=== PATIENT | female | born 1980 ===

== ENCOUNTER 2023-10-28 22:39 | Inpatient (IN) | payer BC ==
[2023-10-29] MEDS ORDERED: Butorphanol 1 MG/ML SDV IVPUSH PRN (02:15)
[2023-10-29] MEDS ORDERED: Lactated Ringers 1,000 ML IV SCH (02:15)
[2023-10-29] MEDS ORDERED: Methylergonovine 0.2 MG/1 ML Amp IM PRN (02:15)
[2023-10-29] MEDS ORDERED: Misoprostol 200 MCG Tab PO PRN (02:15)
[2023-10-29] MEDS ORDERED: Terbutaline 1 MG/ML SDV SUBCUT PRN (02:15)
[2023-10-29] MEDS ORDERED: Oxytocin/0.9 % Sodium Chloride 30 UNIT/500 ML BAG IV SCH ×2 (02:15)
[2023-10-29] MEDS ORDERED: Tranexamic Acid IN NACL,ISO-OS 1,000 MG in Premix Bag 1 BAG IV PRN ×2 (02:15)
[2023-10-29] MEDS ORDERED: Lidocaine 1% 50 ML MDV INJECT PRN (02:15)
[2023-10-29] MEDS ORDERED: Water For Irrigation,Sterile 1,000 ML Container IRR PRN (02:15)
[2023-10-29] MEDS ORDERED: Misoprostol 25 MCG (1/4 of 100 MCG) Tab VAG PRN ×2 (02:15)
[2023-10-29] MEDS ORDERED: Sodium Chloride 0.9% 10 ML Syringe FLUSH PRN (02:15)
[2023-10-29] MEDS ORDERED: Sodium Chloride 0.9% 2.5 ML Syringe FLUSH PRN (02:15)
[2023-10-29] MEDS ORDERED: Carboprost Tromethamine 250 MCG/1 mL Vial IM PRN (02:15)
[2023-10-29] MEDS ORDERED: Ondansetron 4 MG/2 ML SDV IVPUSH PRN (02:15)
[2023-10-29] MEDS ORDERED: Sodium Chloride 0.9% 20 ML SDV IV PRN (02:15)
[2023-10-29 02:58] LABS: HEMATOCRIT 33.3 % (37.0-47.0); HEMOGLOBIN 11.7 g/dL (12.0-16.0); MEAN CORPUSCULAR HEMOGLOBIN 30.8 pg (28.0-32.0); MEAN CORPUSCULAR HGB CONC 35.1 g/dL (32.0-36.0); MEAN CORPUSCULAR VOLUME 87.6 fL (83.0-99.0); MEAN PLATELET VOLUME 11.1 fL (9.4-12.3); PLATELET COUNT,PLT 233 K/uL (150-400); WHITE BLOOD CELL COUNT,WBC 8.15 K/uL (3.9-11.3)
[2023-10-29] MEDS: Acetaminophen 325 MG Tab PO PRN ×4 (04:19→22:28)
[2023-10-29] MEDS ORDERED: Benzocaine/Menthol 20%-0.5% Spray 78 GM Cannister TOP PRN (05:28)
[2023-10-29] MEDS ORDERED: Levothyroxine 125 MCG Tab PO SCH (07:30)
[2023-10-29] MEDS ORDERED: Levothyroxine 112 MCG Tab PO SCH (07:30)
[2023-10-29] MEDS ORDERED: Levothyroxine 25 MCG Tab PO SCH ×2 (07:30)
[2023-10-29] MEDS: Prenatal Multivitamin with Calcium/Folic Acid/Iron Tab PO SCH (09:30)
[2023-10-29] MEDS: Ferrous Sulfate 325 MG Tab PO SCH ×3 (09:30→17:31)
[2023-10-29] MEDS: LEVOTHYROXINE 137 MCG PO SCH (10:19)
[2023-10-29] MEDS: Ibuprofen 800 MG Tab PO PRN ×2 (14:17→22:27)
[2023-10-30 05:46] LABS: HEMATOCRIT 31.2 % (37.0-47.0); HEMOGLOBIN 10.6 g/dL (12.0-16.0); MEAN CORPUSCULAR HEMOGLOBIN 30.1 pg (28.0-32.0); MEAN CORPUSCULAR VOLUME 88.6 fL (83.0-99.0); MEAN PLATELET VOLUME 10.2 fL (9.4-12.3); PLATELET COUNT,PLT 224 K/uL (150-400); RED BLOOD CELL COUNT 3.52 M/uL (4.10-5.30); WHITE BLOOD CELL COUNT,WBC 6.48 K/uL (3.9-11.3)
[2023-10-30] MEDS: LEVOTHYROXINE 137 MCG PO SCH (08:10)
[2023-10-30] MEDS: Prenatal Multivitamin with Calcium/Folic Acid/Iron Tab PO SCH (08:10)
[2023-10-30] MEDS: Ferrous Sulfate 325 MG Tab PO SCH ×2 (08:10→13:08)
[2023-10-30] MEDS: Ibuprofen 800 MG Tab PO PRN ×2 (10:23→16:29)
== END 2023-10-30 17:00 | disposition home or self-care (01) | DRG 560 ==
LOC: MW.OBCHECK 22:39 → MW.OB 22:40 → MW.OBCHECK 10-29 02:36 → OBSVTOIN 10-29 03:43 → MW.OB 10-29 06:30
PROVIDERS: ADMIT Obstetrics & Gynecology; ATTEND Obstetrics & Gynecology
PROC: 10E0XZZ Delivery of Products of Conception, External Approach (ICD-10-PCS; principal; 2023-10-29)
PROC: 3E0P7VZ Introduction of Hormone into Female Reproductive, Via Natural or Artificial Opening (ICD-10-PCS; 2023-10-29)
PROC: 3E033VJ Introduction of Other Hormone into Peripheral Vein, Percutaneous Approach (ICD-10-PCS; 2023-10-29)
PROC: 3E0DXGC Introduction of Other Therapeutic Substance into Mouth and Pharynx, External Approach (ICD-10-PCS; 2023-10-29)
DX: O34.211 Maternal care for low transverse scar from previous cesarean delivery (principal); Z37.0 Single live birth; O99.02 Anemia complicating childbirth; Z3A.39 39 weeks gestation of pregnancy; Z85.850 Personal history of malignant neoplasm of thyroid
CPT/HCPCS: 36415; 59025; 59409; 84112; 85027; 86592; 86850; 86900; 86901; A9270-GY; J2590; J7120